=== PATIENT | male | born 1970 | race African-American/Black ===

== ENCOUNTER → 2020-10-10 10:13 | Outpatient (BNVA) | payer OTHER, SELFPAY | PROVIDERS: PCP Podiatrist Foot & Ankle Surgery; Visit Provider Family Medicine Adult Medicine | DX: M53.3 Sacrococcygeal disorders, not elsewhere classified (principal); M47.817 Spondylosis without myelopathy or radiculopathy, lumbosacral region; M46.1 Sacroiliitis, not elsewhere classified | CPT/HCPCS: 99202 ==

== ENCOUNTER 2020-10-29 12:04 | Outpatient (REF) | payer OTHER, SELFPAY ==
--- NOTE | ~2020-10-29 | XR_ITS ---
EXAMINATION: 1. RADIOGRAPHS LUMBAR SPINE 2. PELVIC RADIOGRAPH CLINICAL INFORMATION: Spondylosis without myelopathy or radiculopathy. Sacrococcygeal disorders. COMPARISON: None TECHNIQUE: 5 views of the lumbar spine and a frontal view of the pelvis were obtained. FINDINGS: 5 nonrib-bearing lumbar vertebral bodies are visualized. Alignment is within normal limits. Vertebral body heights and disc spaces are well-maintained. Minimal degenerative changes of the posterior elements of the lower lumbar spine. Small anterior osteophytes are noted off the superior endplate of the L3 and L4 vertebral bodies. The pelvic ring is intact. Sacroiliac joints are symmetric. There is neither fracture nor dislocation of either hip. Prominent pelvic calcifications are likely vascular in nature. XR/XR lumbar spine 4V min IMPRESSION: 1. Minimal degenerative changes of the lower lumbar spine without compression deformity. 2. No pelvic fracture or gross bony pelvic abnormality.
--- NOTE | ~2020-10-29 | XR_ITS ---
EXAMINATION: 1. RADIOGRAPHS LUMBAR SPINE 2. PELVIC RADIOGRAPH CLINICAL INFORMATION: Spondylosis without myelopathy or radiculopathy. Sacrococcygeal disorders. COMPARISON: None TECHNIQUE: 5 views of the lumbar spine and a frontal view of the pelvis were obtained. FINDINGS: 5 nonrib-bearing lumbar vertebral bodies are visualized. Alignment is within normal limits. Vertebral body heights and disc spaces are well-maintained. Minimal degenerative changes of the posterior elements of the lower lumbar spine. Small anterior osteophytes are noted off the superior endplate of the L3 and L4 vertebral bodies. The pelvic ring is intact. Sacroiliac joints are symmetric. There is neither fracture nor dislocation of either hip. Prominent pelvic calcifications are likely vascular in nature. XR/XR pelvis min 3V IMPRESSION: 1. Minimal degenerative changes of the lower lumbar spine without compression deformity. 2. No pelvic fracture or gross bony pelvic abnormality.
== END 2020-10-29 12:05 | disposition home or self-care (01) ==
LOC: HO.XRAY 12:04
PROVIDERS: PCP Internal Medicine; Visit Provider Anesthesiology
DX: M47.817 Spondylosis without myelopathy or radiculopathy, lumbosacral region (principal); M53.3 Sacrococcygeal disorders, not elsewhere classified; M46.1 Sacroiliitis, not elsewhere classified
CPT/HCPCS: 72110; 72190

== ENCOUNTER 2021-01-01 08:00 | Outpatient (RCR) | payer OTHER, SELFPAY ==
--- NOTE | 2020-12-26 09:23 | MHC.PT.EP ---
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 Pt is deemed an appropriate candidate to receive skilled PT in order to address his physical limitations to improve his functional ability. Frequency and Duration: The patient will be seen 2 x / wk x 5 wks. Short Term Goals: Initiate HEP with evidence of compliance. Improve baseline pain to < 6/10, initial 8/10. Penitentiary Goals: I with HEP. Improve core strength to > good (-), initial: fair (-) limited by pain. Pt will report no longer disturbed of sleep d/t LBP. initial: 1/4 night's sleep disturbed. Pt will report traveling does not increase hie pain; initial: traveling increases his pain but does not force him to seek alternative forms of travel. Treatment Plan: Modalities to reduce pain, spasms and effusion. Manual therapy to restore motion and function. Therapeutic exercise to improve strength and flexibility. Neuromuscular re-education for posture and balance. Therapeutic activities to return to functional activities of daily living. Electronically signed by: Kasia Parisi PTA Please sign and return to therapist. Thank you for your referral.
== END 2021-01-15 14:51 | disposition home or self-care (01) ==
LOC: HO.PTCHIC 08:00
PROVIDERS: PCP Internal Medicine; Visit Provider Anesthesiology
DX: M47.817 Spondylosis without myelopathy or radiculopathy, lumbosacral region (principal); M46.1 Sacroiliitis, not elsewhere classified; M53.3 Sacrococcygeal disorders, not elsewhere classified
CPT/HCPCS: 97014; 97110; 97140; 97161